=== PATIENT | male | born 1960 | race Caucasian/White ===

== ENCOUNTER 2017-07-07 15:10 | Inpatient (IN) | END 2017-07-12 17:32 | disposition home health service (06) | DRG 570 ==

== ENCOUNTER 2018-06-19 14:19 | Emergency (ER) | payer MEDICARE, BC ==
[~2018-06-19] VITALS: Ht 157.5 cm; Wt 68.2 kg
[~2018-06-19 14:19] MED LIST: AMLO5TAB4 PO; CYCL10TA7 PO; HYDR-3601 PO; LEVE500T8 PO; LEVO500T48 PO
[2018-06-19 14:33] VITALS: Ht 157.5 cm; Wt 68.2 kg
[2018-06-19] MEDS ORDERED: KETOROLAC 30 MG INJ IM STA (18:49)
[2018-06-19] MEDS ORDERED: LEVETIRACETAM 500 MG TAB PO ONE (19:00)
--- NOTE | 2018-06-19 19:07 | ERD ---
ER Documentation Chief Complaint Chief Complaint Pt with seizures yesterday, had craniatomy 3 years ago. HPI 58-year-old man complains of left hip and buttock pain after tonic-clonic seizur e 2 days ago. He also struck the frontal scalp when he had the seizure 2 days ago. Patient states he has a long history of seizure disorder status post craniotomy about 3-4 years ago and has been using Keppra daily, he states he has about 3-5 seizures per year the last seizure before the one 2 days ago was about 4 months ago. States he is compliant with his medications. Patient denies difficulty ambulating but has pain in the left hip and buttock with ambulation the pain has been nonradiating and nonexertional. Patient denies headache or blurry vision, no neck pain, no chest pain or shortness of breath. ROS All systems reviewed and are negative except as per history of present illness. Medications Home Meds Active Scripts Naproxen* (Naprosyn*) 500 Mg Tablet, 500 MG PO BID PRN for PAIN AND/OR INFLAMMATION, #30 TAB Prov:RICHELLE DIXON MD 06/19/18 Reported Medications Lacosamide (Vimpat) 200 Mg Tablet, 200 MG PO BID, TAB 06/19/18 Escitalopram Oxalate* (Escitalopram Oxalate*) 20 Mg Tablet, 20 MG PO DAILY, #30 TAB 06/19/18 Metoprolol Tartrate* (Lopressor*) 25 Mg Tab, 25 MG PO BID, #60 TAB 06/19/18 Levetiracetam* (Levetiracetam*) 500 Mg Tablet, 1500 MG PO DAILY, TAB OR IF NEEDED TAKE 3TAB BID 06/19/18 Losartan Potassium* (Losartan Potassium*) 100 Mg Tablet, 100 MG PO DAILY, TAB 06/19/18 Gabapentin* (Gabapentin*) 100 Mg Capsule, 100 MG PO TID, #90 CAP 06/19/18 Amlodipine Besylate* (Norvasc*) 5 Mg Tablet, 5 MG PO DAILY, TAB 06/19/18 Naproxen* (Naproxen*) 500 Mg Tablet, 500 MG PO BID, TAB 06/19/18 Cyclobenzaprine Hcl* (Cyclobenzaprine Hcl*) 10 Mg Tablet, 10 MG PO DAILY, #60 TAB 06/19/18 Acetamin/Butalbital/Caffeine* (Fioricet*) [id number] Tab, 1 TAB PO Q4H PRN for PAIN LEVEL 1-5, TAB 06/19/18 Lorazepam* (Lorazepam*) 1 Mg Tablet, 1 MG PO HS PRN for ANXIETY, #30 TAB 06/19/18 Aspirin* (Aspirin* EC) 81 Mg Tablet.dr, 81 MG PO DAILY, TAB 06/19/18 Discontinued Reported Medications Levetiracetam* (Levetiracetam*) 500 Mg Tablet, 1500 MG PO BID, TAB 07/07/17 Cyclobenzaprine Hcl* (Cyclobenzaprine Hcl*) 10 Mg Tablet, 10 MG PO Q8 PRN for MUSCLE SPASMS, #60 TAB 07/07/17 Amlodipine Besylate* (Norvasc*) 5 Mg Tablet, 5 MG PO DAILY, TAB 07/07/17 Discontinued Scripts Hydrocodone Bit-Acetaminophen (Hydrocodone Bit-APAP) 5-325MG Tablet, 1 TAB PO Q8 PRN for PAIN, #21 TAB Prov:RICHELLE PAYNE 07/12/17 Levofloxacin* (Levaquin*) 500 Mg Tablet, 500 MG PO DAILY@06 for 9 Days, #9 TAB Prov:RICHELLE PAYNE 07/12/17 Allergies Allergies: Coded Allergies: No Known Allergies (Verified Allergy, Mild, 06/19/18) PMhx/Soc Hypertension, seizure disorder, craniotomy History of Surgery: Yes (appendectomy, tonsillectomy, craniotomy) Anesthesia Reaction: No Hx Neurological Disorder: Yes (craniotomy- accident) Hx Respiratory Disorders: No Hx Cardiac Disorders: No Hx Psychiatric Problems: No Hx Miscellaneous Medical Probl: Yes (See EMR for detail. ) Hx Alcohol Use: Yes Hx Substance Use: No Hx Tobacco Use: Yes Smoking Status: Current every day smoker FmHx Family History: No diabetes Physical Exam Vitals Vital Signs Date Temp Pulse Resp B/P (MAP) Pulse Ox O2 O2 Flow FiO2 Time Delivery Rate 06/19/18 98.4 83 16 144/97 98 20:14 (113) 06/19/18 99.6 78 18 165/93 100 Room Air 18:40 (117) 06/19/18 99.6 109 18 171/92 100 14:33 (118) Physical Exam GENERAL: Well-developed, well-nourished, well-hydrated, in no apparent distress, looks nontoxic in appearance NEURO: Alert and oriented 3, cranial nerves II through XII intact bilaterally, pupils equal round reactive to light, no focal deficits or facial asymmetry, sen sation intact distally Strength 5/5 in upper and lower extremities bilaterally CARDIAC: Regular rate and rhythm, no murmurs rubs or gallops LUNGS: Clear bilaterally no wheezing crackles or stridor SKIN: Warm and dry to touch, soft tissue contusion mild tenderness to touch and ecchymosis to the left lateral buttock and left hip. EXTREMITIES: No clubbing cyanosis or edema, calves are bilaterally symmetrical, no Homans sign, no popliteal cord sign. Distal pulses equal and bilateral PSYCH: Normal affect without agitation or irritability Results 24 hrs Current Medications Medications Dose Sig/Ángel Start Time Status Last (Trade) Ordered Route PRN Stop Time Admin Dose Reason Admin 1,000 mg ONCE ONCE 06/19/18 DC 06/19/18 Levetiracetam PO 19:00 19:01 (Keppra) 06/19/18 19:01 Ketorolac 30 mg ONCE STAT 06/19/18 DC 06/19/18 Tromethamine IM 18:49 18:57 (Toradol) 06/19/18 18:51 Procedures/MDM I administered Keppra 1 g p.o. and Toradol 30 mg IM x1 for complaints of pain. CT scan of the brain was negative for acute bleed mass or shift. X-ray Pelvis 1V Interpreted by me: Bones: No fracture Joints: No dislocation Foreign body: None X-ray left hip 2V Interpreted by me: Bones: No fracture Joints: No dislocation Foreign body: None EKG performed, read by me: 88 bpm, normal sinus rhythm, normal axis, no acute ST segment changes, narrow QRS complex, with good R-wave progression in precordial leads. Differential diagnoses considered, included but not limited to acute coronary syndrome, pulmonary embolism, aortic dissection, abdominal aortic aneurysm, sepsis, stroke, meningitis, encephalitis, pneumonia, appendicitis, cholecystitis, bowel obstruction, pyelonephritis, nephrolithiasis, cystitis, as well as metabolic, hematologic, and electrolyte abnormalities. As well as abscess, cellulitis, fractures, and dislocations. Patient feels much better at this time, and vital signs are normal, symptoms have improved. I did give strict instructions to return to the ED if symptoms continue or worsen, patient will otherwise follow-up with primary care physician. Patient understood instructions and agreed to plan. Disclaimer: Inadvertent spelling and grammatical errors are likely due to E HR/dictation software use and do not reflect on the overall quality of patient care. Also, please note that the electronic time recorded on this note does not necessarily reflect the actual time of the patient encounter. Departure Diagnosis: Primary Impression: Contusion, hip Encounter type: initial encounter Laterality: left Qualified Codes: S70.02XA - Contusion of left hip, initial encounter Additional Impression: Breakthrough seizure Condition: Good RICHELLE DIXON MD Jun 19, 2018 19:07
[2018-06-19] MEDS ORDERED: LORA1TAB PO (19:27)
[2018-06-19] MEDS ORDERED: ASPI-817 PO (19:27)
[2018-06-19] MEDS ORDERED: FIORICET PO (19:29)
[2018-06-19] MEDS ORDERED: CYCL10TA7 PO (19:30)
[2018-06-19] MEDS ORDERED: NAPR-688 PO (19:30)
[2018-06-19] MEDS ORDERED: GABA100C14 PO (19:31)
[2018-06-19] MEDS ORDERED: AMLO5TAB4 PO (19:31)
[2018-06-19] MEDS ORDERED: LOSA100T15 PO (19:31)
[2018-06-19] MEDS ORDERED: LEVE500T8 PO (19:34)
[2018-06-19] MEDS ORDERED: ESCI20TA38 PO (19:35)
[2018-06-19] MEDS ORDERED: METO-448 PO (19:35)
[2018-06-19] MEDS ORDERED: LACO200T2 PO (19:36)
[2018-06-19] MEDS ORDERED: NAPR-985 PO (19:39)
[2018-06-19 20:14] VITALS: BP 144/97; PULSE 83; RESP 16
== END 2018-06-19 20:18 | disposition home or self-care (01) ==
LOC: E/R 14:19
DX: S70.02XA Contusion of left hip, initial encounter (principal); G40.909 Epilepsy, unspecified, not intractable, without status epilepticus; I10 Essential (primary) hypertension; X58.XXXA Exposure to other specified factors, initial encounter; Y92.9 Unspecified place or not applicable; Z79.82 Long term (current) use of aspirin
CPT/HCPCS: 70450; 72170; 73510; 93005; 96372; 99285; J1885; 73502